=== PATIENT | female | born 1945 | race Caucasian/White ===

== ENCOUNTER 2017-11-09 08:04 | Outpatient (CLI) | payer OTHER, SELFPAY ==
[2017-11-09 08:48] LABS: HCT 37.7 % (36.0-46.0); HGB 12.5 g/dL (12.0-15.5); Mean Corp. HGB Concentration 33.2 g/dL (32.0-36.0); Mean Corpuscular Hemoglobin 29.8 pg (27.0-33.0); Mean Platelet Volume 10.1 fL (8.0-11.0); Platelet Count 189 x1000/uL (130-400); RBC 4.19 m/cumm (4.00-5.20); RBC Distribution Width 13.8 % (11.7-14.6); White Blood Cell Count 4.22 k/cumm (4.4-10.8)
[2017-11-09 09:23] LABS: ALT 28 U/L (12-78); AST 27 U/L (15-37); Albumin 3.8 g/dL (3.4-5.0); Alkaline Phosphatase 52 U/L (46-116); Anion Gap 7.4 mmol/L (3-11); BUN 21 mg/dL (7-18); Bilirubin, Total 0.3 mg/dL (0.2-1.0); CO2 27.6 mmol/L (21.0-32.0); Calcium 8.3 mg/dL (8.5-10.1); Chloride 107 mmol/L (98-107); Cholesterol 208 mg/dL (50-200); Glucose 81 mg/dL (70-100); HDL Cholesterol 78 mg/dL (40-60); LDL CHOLESTEROL 122 mg/dL (<100); Potassium 3.8 mmol/L (3.5-5.1); Sodium 142 mmol/L (136-145); Total Protein 6.4 g/dL (6.4-8.2); Triglyceride 48 mg/dL (30-150)
== END 2017-11-09 08:24 ==
PROVIDERS: PCP Family Medicine; Visit Provider Family Medicine
DX: Z00.00 Encounter for general adult medical examination without abnormal findings (principal); Z13.228 Encounter for screening for other metabolic disorders; Z13.6 Encounter for screening for cardiovascular disorders; Z13.0 Encounter for screening for diseases of the blood and blood-forming organs and certain disorders involving the immune mechanism
CPT/HCPCS: 36415; 80053; 80061; 83721; 85027

== ENCOUNTER 2018-02-09 01:09 | Outpatient (CLI) | payer OTHER, SELFPAY ==
--- NOTE | 2018-02-09 14:30 | DI.MAMMO_ITS ---
SYMPTOMS/DIAGNOSIS: 6-MO F/U ABNORMAL RIGHT MAMMO SIX-MONTH FOLLOWUP RIGHT MAMMOGRAM: Mammograms were interpreted according to the usual protocol including computer analysis with CAD system, tomosynthesis and C view imaging. Comparison is with the prior examinations. Breast density C. No suspicious masses or microcalcifications are seen. The skin and axillae are unremarkable. IMPRESSION: No evidence for malignancy. Yearly mammography is recommended. Category 1. MQSA ASSESSMENT OF FINDINGS: Negative. Category 1. Patient will receive a letter notifying them of these results. Bi-RADS category C. The breasts are heterogeneously dense, which may obscure small masses.
== END 2018-02-09 01:29 ==
PROVIDERS: PCP Family Medicine; Referring Provider Family Medicine; Visit Provider Family Medicine
DX: Z12.31 Encounter for screening mammogram for malignant neoplasm of breast (principal); R92.8 Other abnormal and inconclusive findings on diagnostic imaging of breast; N64.59 Other signs and symptoms in breast
CPT/HCPCS: 77061; 77065; G0279

== ENCOUNTER 2018-02-21 00:25 | Outpatient (CLI) | payer OTHER, SELFPAY ==
--- NOTE | 2018-02-21 16:12 | DI.DEXA_ITS ---
SYMPTOM/DIAGNOSIS: SCREENING FOR OSTEOPOROSIS IN POSTMENOPAUSAL WOMAN, Z78.0 DEXA SCAN: The YOAV image shows no evidence of compression fractures. The upper thoracic vertebral bodies are not included on the exam. Degenerative changes and scoliosis are seen in the lumbar spine. The bone mineral density measurements of the lumbar spine correspond to a total T score of 0.6, in the normal range. This is not significantly changed from 2004. The bone mineral density measurements of the left hip correspond to a total T score of -0.4 and a femoral neck T score of -1.3, consistent with osteopenia. The total T score has decreased 11.2% when compared with the previous exam. The bone mineral density measurements of the left forearm correspond to a total T score of -0.8, in the normal range. IMPRESSION: Normal bone mineral density of the lumbar spine and forearm. Osteopenia of the left hip.
== END 2018-02-21 00:45 ==
PROVIDERS: PCP Family Medicine; Visit Provider Family Medicine
DX: M85.88 Other specified disorders of bone density and structure, other site (principal); Z78.0 Asymptomatic menopausal state
CPT/HCPCS: 77080

== ENCOUNTER 2019-02-12 01:24 | Outpatient (CLI) | payer OTHER, SELFPAY ==
--- NOTE | 2019-02-12 09:27 | DI.MAMMO_ITS ---
EXAM: MG MAMMO SCREENING CLINICAL HISTORY: SCREENING, Z12.31. TECHNIQUE: Full field digital CC and MLO mammographic images were obtained with 3D tomosynthesis and utilizing computer aided detection (CAD). COMPARISON: 2009 through 2018 FINDINGS: Breast density: C Masses/Architectural Distortion: None seen. Microcalcifications: No suspicious pleomorphic-type calcifications are seen. Skin Thickening/Nipple Retraction: None. Axilla: Unremarkable. IMPRESSION: 1. BI-RADS category 1, negative. No significant interval change with no specific features of maligna ncy noted. 2. Unless there is more urgent need, screening mammography is recommended, as per [employer] guidelines. BI-RADS Cat 1 - Negative Breast Density - Category C - Heterogeneously dense A negative radiographic report should not delay biopsy if a dominant or clinically suspicious mass is present. Up to ten percent of cancers are not identified on mammography. A negative report may reinforce clinical impression. Adenosis and dense breasts may obscure an underlying neoplasm. False positive reports average 6 to 10%. Patient will receive a letter notifying them of these results.
== END 2019-02-12 01:44 ==
PROVIDERS: PCP Family Medicine; Visit Provider Family Medicine
DX: Z12.31 Encounter for screening mammogram for malignant neoplasm of breast (principal)
CPT/HCPCS: 77063; 77067

== ENCOUNTER 2020-02-14 01:00 | Outpatient (CLI) | payer OTHER, SELFPAY ==
--- NOTE | 2020-02-14 14:51 | DI.MAMMO_ITS ---
EXAM: MG MAMMO SCREENING CLINICAL HISTORY: SCREENING, Z12.31. TECHNIQUE: Bilateral full field digital CC and MLO mammographic images were obtained with 3D tomosyn thesis and utilizing computer aided detection (CAD). COMPARISON: Prior mammograms dating back to 2010, the most recent being degenerate 2019. Family his tory. Patient's mother diagnosed breast cancer at age 70. FINDINGS: Fibroglandular tissue pattern is moderately dense. There are no new obvious spiculated masses nor malignant appearing microcalcification groups. There is no significant architectural distortion nor skin thickening-retraction. IMPRESSION: No radiographic evidence of malignancy. BI-RADS Category 1 - Negative Breast Density - Category C - Heterogeneously dense Breast density Category C or D implies that the patient has dense breast tissue. Dense breast tissue can make it harder to find cancer on a mammogram. Dense breast tissue is also associated with an incr eased risk of breast cancer. This information about the result of the mammogram report was provided to the patient to raise their awareness. Use this report when you speak with the patient about their risks for breast cancer, which includes their family history. At that time, you may recommend additional screening tests (Ultrasoun d or MRI) as these tests may add significant information. A negative radiographic report should not delay biopsy if a dominant or clinically suspicious mass is present. Up to ten percent of cancers are not identified on mammography. A negative report may reinforce clinical impression. Adenosis and dense breasts may obscure an underlying neoplasm. False positive reports average 6 to 10%. Patient will receive a letter notifying them of these results.
== END 2020-02-14 01:20 ==
PROVIDERS: PCP Family Medicine; Visit Provider Family Medicine
DX: Z12.31 Encounter for screening mammogram for malignant neoplasm of breast (principal); Z80.3 Family history of malignant neoplasm of breast
CPT/HCPCS: 77063; 77067

== ENCOUNTER → 2020-06-16 09:06 | Outpatient (BNVA) | payer OTHER, SELFPAY | PROVIDERS: PCP Family Medicine; Referring Provider Family Medicine; Visit Provider Surgery | DX: K40.20 Bilateral inguinal hernia, without obstruction or gangrene, not specified as recurrent (principal) | CPT/HCPCS: 99202; 99203 ==

== ENCOUNTER 2020-07-14 03:59 | Outpatient (CLI) | payer OTHER, SELFPAY ==
[2020-07-14 12:34] LABS: Source Nasal/Nares
[2020-07-14 21:02] LABS: COVID-19 PCR Negative (Negative)
== END 2020-07-14 04:00 | disposition home or self-care (01) ==
LOC: LBO 03:59
PROVIDERS: PCP Family Medicine; Visit Provider Surgery
DX: Z20.822 Contact with and (suspected) exposure to COVID-19 (principal); Z01.818 Encounter for other preprocedural examination
CPT/HCPCS: 87635

== ENCOUNTER 2020-07-15 07:25 | Day surgery (SDC) | payer OTHER, SELFPAY ==
[2020-07-15] VITALS (9 sets, daily range): BP systolic 103–127; BP diastolic 63–79; PULSE 62–81; RESP 12–16; TEMP 36.1–36.5; O2SAT 96–100; BMI 22.7
--- NOTE | 2020-07-15 06:36 | ANES.PREOP_ITS ---
General Info Date of Service Date Performed: 07/15/20 Height: 5 ft 7 in Weight: 65.828 kg Body Mass Index (BMI): 22.7 Surgical Procedure: Operation Date: 07/15/20 09:55 Proposed Procedures Side Surgeon p Herniorrhaphy Inguinal Bilateral Mavis Steen, Meds Allergies and Home Medications Allergies Allergy/AdvReac Type Severity Reaction Status Date / Time cephalexin monohydrate Allergy Severe ITCHING Unverified 07/15/20 07:35 [From Keflex] prochlorperazine AdvReac Intermediate LOCKING Unverified 07/15/20 07:35 MUSCLES, CAN'T SIT STILL Home Medication Medication Instructions Recorded multivitamin [Multi Vitamin Daily] 1 ea PO DAILY 06/17/12 Bioadreno 1 cap PO DAILY 06/22/12 cholecalciferol (vitamin D3) 1 drp PO DAILY 10/03/12 zsjrkvef-mobu-mjklcx-hyalur ac 1 ea PO DAILY 09/06/13 magnesium amino acid chelate 100 mg PO DAILY 09/06/13 Apple Cider Vinegar 1 tab.trish PO DAILY 01/12/16 omega 7-tks-gvp-fish oil 1 cap PO DAILY 01/12/16 estradiol [Estring] 1 ea VG q 3 months #1 ea 01/12/17 calcium citrate 500 mg-vit D3 12.5 500 g PO DAILY 06/16/20 mcg (500 unit)/5 gram oral powder Current Visit Medications: Current Medications Generic Name Dose Route Start Last Admin Trade Name Freq PRN Reason Stop Dose Admin Acetaminophen 1,000 mg 07/15/20 06:00 Acetaminophen 500 Mg Tab PO 08/13/20 23:59 PREOP ANNIA Gabapentin 300 mg 07/15/20 06:00 Gabapentin 300 Mg Cap PO 08/13/20 23:59 PREOP ANNIA Ringer's Solution 1,000 mls @ 80 mls/hr 07/15/20 06:00 IV 08/13/20 23:59 INFUSION ANNIA IV Miscellaneous Supplies 1 each 07/15/20 06:00 Iv Access IV 08/13/20 23:59 DIRECTED ANNIA Sodium Chloride 0 ml 07/15/20 06:00 Normal Saline Flush 10 Ml Syr IV 08/13/20 23:59 PRN PRN Sodium Chloride 0 ml 07/15/20 06:00 Normal Saline 10 Ml Vial IJ 08/13/20 23:59 DIRECTED PRN Sterile Water 0 ml 07/15/20 06:00 Water,Injection,Sterile 10 Ml Vial IJ 08/13/20 23:59 DIRECTED PRN PFSH Active Problems Active Problems: Problem Status Onset Code Bilateral inguinal hernia without obstruction or gangrene K40.20 Medical History Medical History Inguinal hernia, right Surgical History Surgical History (Updated 07/15/20 @ 07:45 by Jonnathan Godwin) blepharaplasty (~10/2012) Hx of cataract removal with insertion of prosthetic lens KNEE SURGERY sugery for torn cartilage Tobacco Smoking/Tobacco Use Status: Never Alcohol Alcohol Intake: current Alcohol intake frequency: a few times a week Alcohol type: wine Substance Use Substance use: Never Substance use type: does not use Vital Signs and Lab Results Vital Signs Most Recent Vital Signs in EMR: Temp Pulse Resp BP Pulse Ox 36.5 C 81 16 124/76 97 07/15/20 07:38 07/15/20 07:38 07/15/20 07:38 07/15/20 07:38 07/15/20 07:38 Lab Results Blood Type / Crossmatch: No Data to Display Complete Blood Count: No Data to Display Complete Metabolic Panel: 2 No Data to Display Liver Function Panel: No Data to Display Coagulation Panel: No Data to Display Cardiac Panel: No Data to Display Arterial Blood Gas: No Data to Display Venous Blood Gas: No Data to Display Pancreas Panel: No Data to Display Thyroid Panel: No Data to Display Infectious Disease: Coronavirus (COVID-19)(PCR) Negative (Negative) 07/14/20 08:39 07/14/20 Coronavirus 2019 Source Nasal/nares 07/14/20 08:39 07/14/20 Blood Cultures: No Data to Display Toxicology Panel: No Data to Display Anesthesia Assessment and Plan Anesthesia History Personal History: No History of Anesthesia Complications Family History: No Family History of Anesthesia Complications Exercise Tolerance Exercise Tolerance: Metabolic Equivalents>4 Cardiac & Pulmonary Exam Cardiac Exam: Normal S1/S2 Heart Sounds Pulmonary Exam: Clear Bilateral Breath Sounds Airway Exam Known Difficult Airway: No Mallampati Class: 2 Mouth Opening: Normal (> 3cm) Thyromental Distance: Greater than 3 cm Neck Range of Motion: Full ROM Neck Circumference: Normal Teeth Condition: Normal Dentition ASA Classification ASA Score: ASA 2 Emergency Case?: No NPO Status NPO Status: NPO Clears >2 hours, Solids >8 hours Anesthesia Plan Resuscitation Status: Full Code Anesthesia Technique: General Anesthesia Airway Planned: LMA Pain Management: Surgeon and patient request nerve block Monitors Used: Standard Monitors Preoperative Comments:: Discussed risks, benefits, and alternatives of GA vs spinal with additional TAP blocks. Pt would like GA and TAP block.
[2020-07-15] MEDS: Lactated Ringers 1,000 ML 80 ML IV (08:09)
[2020-07-15] MEDS: Acetaminophen 500 MG TAB 1000 MG PO (08:09)
[2020-07-15] MEDS: Gabapentin 300 MG CAP PO (08:09)
[2020-07-15] MEDS: ceFAZolin 2 GM/50 ML BAG IVPB (10:28)
--- NOTE | 2020-07-15 11:12 | W.ANESNERVE ---
Nerve Block Single Injection Procedure Date and Time Date Performed: 07/15/20 Procedure Start: 10:42 Location Where Procedure Performed Procedure Location: Operating Room Procedure Stop: 10:53 Reason Performed: Postoperative Analgesia Requesting Provider: Mavis Steen Timeout Performed Timeout Performed: Yes Monitoring Used ECG, Blood Pressure, SpO2, ETCO2 and See EMR for corresponding vital signs Sterility Sterility: Hand Hygiene, Surgical Cap, Surgical Mask, Sterile Gloves, Eye Protection and Chlorhexidine Sedation Given During Procedure Sedation Given (Indicate Dose Given): No Sedation given Patient Mental Status Patient Mental Status: Performed under general anesthesia Nerve Block 1st Nerve Block: Laterality: Bilateral Block Type: TAP Bilateral Needle / Catheter Used: 100mm SonoPlex II Local Anesthetic Bolus (Indicate Dose Given): Injected in 3-5ml increments after negative blood aspiration, Half of Total block solution given into each side, Bupivacaine 0.375% Dose:: 40 mL and Exparel Dose:: 20 cc Additives (Indicate Dose Given): None Ultrasound: Sterile probe cover and gel used Ultrasound Image Saved?: Yes Nerve Stimulator: Not Used Paresthesia: None Procedure Tolerated: No Complications Procedure Outcome: Successful (block was completed. ) Performed By: Lola Bourgeois Supervised By: Abhishek Callahan
[2020-07-15] MEDS: Lidocaine 1% Multi-Dose 50 ML VIAL (11:40)
--- NOTE | 2020-07-15 12:28 | W.PM.OP ---
Date of service: 07/15/20 Time of Service: 12:28 Operative Note Operative Note DATE OF PROCEDURE: 07/15/20 PRE-OP DIAGNOSIS: b/l inguinal hernias POST-OP DIAGNOSIS: same PROCEDURE: open b/l inguinal hernia- indirect SURGEON: Mavis Benitez ASH CONVEYOR OPERATOR: Yenny Roberts ANESTHESIA TYPE: Local By Surgeon, General:No Airway and Primary Nerve Block Refer to Anesthesia Record ESTIMATED BLOOD LOSS: 5 PATHOLOGY: none sent COMPLICATIONS: None Patient was transported to: PACU Patient's condition: stable Implants: see RN notes Procedure Description: INDICATIONS: The pt is here today for surgery regarding symptomatic bilateral inguinal hernia that has failed outpatient conservative medical management and she is here today for repair. Informed consent was obtained, explaining risks and benefits of the procedure including but not limited to bleeding, infection, pneumonia, blood clots, chronic pain, chronic numbness, recurrence of hernia, reaction to Mesh necessitating removal, and other unforetold complications, and complications of anesthesia-which were addressed by the SPECIAL NEED[employer] BUS DRIVER. The patient is marked in preOp prior to the procedure DESCRIPTION OF PROCEDURE: The pt is then brought to the operative room suite. Anesthesia was administered per the Department of Anesthesia. Anesthesia did nerve blocks using Exparel. The patient was prepped and draped in the usual sterile fashion using ChloraPrep scrub solution. Pause for the cause was done. SHe did receive preop IV antibiotics. The right side is attended to first. Twenty mL of .25% Marcaine w/ epinephrine was used for local anesthetization. A #12 blade was used to make an incision over the external ring. Electrocautery used to provide hemostasis and dissect down to the the external Bleich fashion. The hernia is noted protruding through the inguinal ring. The external Bleich is opened approximately half an inch to facilitate visualization of the internal ring. The nerve is identified and obliterated using electrocautery. The hernia sac is dissected out. There is a large cord lipoma adhered to this. This is dissected off the sac, and then tied off with 0 Vicryl tie, and excised. Electro-cautery is used to provide hemostasis. The sac is inverted and returned to the abdominal cavity. A large mesh plug was slightly modified for fit, was then placed into the defect and oversewn, using 2-0 Vicryl. The patch was then placed on the floor and sewn in using 2-0 Vicryl sewn into the pubic tubercle ,and the shelving portions of the inguinal ligament. the wound was copiously irrigated. There was no bleeding noted. All structures are returned to there nomral anatomic position. The external oblique is than reapproximated in a running fashion with 2-0 vicryl, the incision. Deep tissue was approximated with 3-0 Vicryl and skin was approximated with 4-0 Monocryl in a running subcuticular fashion. Skin glue was applied. The left side is attended to in a similar fashion. Twenty mL of .25% Marcaine w/ epinephrine was used for local anesthetization. A #12 blade was used to make an incision over the external ring. Electrocautery used to provide hemostasis and dissect down to the the external Bleich fashion. The hernia is noted protruding through the inguinal ring. The external Bleich is opened approximately half an inch to facilitate visualization of the internal ring. The nerve is identified and obliterated using electrocautery. The hernia sac is dissected out. There is a small cord lipoma adhered to this. This is dissected off the sac, and then tied off with 0 Vicryl tie, and excised. Electro-cautery is used to provide hemostasis. The sac is inverted and returned to the abdominal cavity. A small mesh plug was was then placed into the defect and oversewn, using 2-0 Vicryl. The patch was then placed on the floor and sewn in using 2-0 Vicryl sewn into the pubic tubercle ,and the shelving portions of the inguinal ligament. the wound was copiously irrigated. There was no bleeding noted. All structures are returned to there nomral anatomic position. The external oblique is than reapproximated in a running fashion with 2-0 vicryl, the incision. Deep tissue was approximated with 3-0 Vicryl and skin was approximated with 4-0 Monocryl in a running subcuticular fashion. Skin glue was applied. The patient tolerated the procedure without complications to recovery in stable condition. MAVIS BENITEZ DO
--- NOTE | 2020-07-15 12:30 | W.PM.DSUDISC ---
Discharge Plan Disposition Patient Disposition: HOME Condition: Good Discharge Details Reason For Visit: b/l inguinal hernias Attending Provider: Mavis Steen Primary Care Provider: Selina Rizzo Home Meds and New Rx's Prescriptions: New ibuprofen 600 mg tablet 600 mg PO Q6H PRN (Reason: pain) Qty: 90 RF: 0 Continued calcium citrate-vitamin D3 500 mg-12.5 mcg /5 gram powder 500 g PO DAILY RF: 0 multivitamin [Daily Multi-Vitamin] 1 EACH tablet 1 ea PO DAILY RF: 0 bioadreno 1 cap PO DAILY RF: 0 cholecalciferol (vitamin D3) 400 UNIT/1 ML drops 1 drp PO DAILY RF: 0 pknjcycj-fnjn-okjoin-hyalur ac 1 EACH capsule 1 ea PO DAILY RF: 0 magnesium amino acid chelate 100 MG tablet 100 mg PO DAILY RF: 0 Apple Cider Vinegar 1 tab.trish PO DAILY RF: 0 omega 9-itg-jts-fish oil 1 EACH capsule 1 cap PO DAILY RF: 0 Estring 1 EACH ring 1 ea VG q 3 months Qty: 1 RF: 4 Discharge Instructions Additional Instructions: Dr. Steen HERNIA REPAIR ? POSTOPERATIVE INSTRUCTIONS Patients who have this type of surgery can usually be expected to return to work within two weeks and have minimal amounts of discomfort. ? ACTIVITY: The day of surgery should be spent resting. However, you can be up for short periods of time, I.E., going to the bathroom or kitchen. Avoid lifting or straining. On the day following surgery, you can be up and about as desired. ? LIFTING: Restrict your lifting to no more than five (5) pounds for the first week following surgery. For the second week after surgery, don?t lift more than ten pounds. We will decide when you are done with restrictions and when you can return to work, at your follow-up appointment. No sexual activity for two weeks. ? DIET: There are no dietary restrictions following surgery. However, you may want to start with small amounts of liquids to avoid nausea the day of surgery. ? INCISION CARE: You will notice purple skin glue closing the incision. Do not peel this off- it will wear off on its own. After 24 hours you may shower. The dressing may be replaced for comfort, but is not necessary. An ice bag may be applied to the incision for 72 hours following surgery. ? SIGNS OF INFECTION: It is not unusual to have some black and blue discoloration of the skin around the incision. It will slowly disappear. If you have any increased redness, drainage, fever (above 100 degrees), please contact your doctor for an examination. ? DISCOMFORT: You may expect to have some mild discomfort at the incision sight. If severe pain develops you should contact your doctor for further instructions. ? URINATION: Patients who have surgery occasionally have problems urinating. If you experience problems and are not able to urinate within 6 hours following your surgery, please call your doctor immediately or go to your nearest Emergency Room for evaluation. ? DRIVING: NO driving for three (3) days after surgery, or if you are still taking narcotic pain medication. ? MEDICATIONS: Alternate Tylenol 1000mg by mouth every 8 hours and Ibuprofen 600mg every 6 hours. Make sure you take ibuprofen with food and not on an empty stomach. Take the Tylenol and ibuprofen continuously for the first 72hrs- not just when you have pain. Use the tramadol for breakthrough pain. Use ICE! Twenty minutes on, and then off, continuously for the first 72hours. If you are taking narcotic pain medication, follow the instructions on the label and do not drive. Pain medications can make you very constipated. Make sure you are moving your bowels daily. If not, take Miralax, milk of magnesia or magnesium citrate. Anesthesia makes you very constipated. Take a dose of milk of magnesia the morning after surgery. ? REPORT: Unusual swelling, severe pain, unresolved nausea, signs of infection, or difficulty in urination to your surgeon. Follow up in clinic with Dr. Steen in 1-2 weeks. [phone] Stand Alone Forms: Anesthesia Discharge Inst., Anes.Nerve Block Instructions Activity:: see above Remove Dressings/Wound Care:: 24 hours Shower/Bathe:: 24 hours Diet:: see above Discharge Orders Discharge Orders: Discharge Order (Routine); Ordered 07/15/20 Ordered By: Mavis Steen Discharge Data Discharge Date/Time-TO BE ENTERED AT DEPARTURE: 07/15/20 15:25 Discharge Comment: To friend, Mariza, via wheelchair by Ashia WADE. DS: Diagnosis Discharge Diagnosis (1) Bilateral inguinal hernia without obstruction or gangrene: Status: Acute
--- NOTE | 2020-07-15 13:04 | W.ANESPOSTOP ---
Postoperative Evaluation Date, Time and Location Date Performed: 07/15/20 Time Performed: 13:04 Patient Location: PACU Vital Signs Most Recent Imported Vital Signs: Most Recent Vital Signs Temp Pulse Resp BP Pulse Ox 36.5 C 77 14 127/76 96 07/15/20 12:55 07/15/20 12:55 07/15/20 12:55 07/15/20 12:55 07/15/20 12:55 Pain Score Most Recent Pain Score: Most Recent Pain Score Pain Level 0 07/15/20 12:55 Assessment Mental Status: Awake (Alert & Oriented to Patient Baseline) Airway and Respiratory Function: Patent airway with normal (patient baseline) respiratory exam Cardiovascular Function: Hemodynamically Stable Hydration Status: Adequately Hydrated Nausea & Vomiting: No Nausea or Vomiting Pain: Pt. Denies Any Pain Peripheral Nerve Block: Regional nerve block not resolved at time of post operative discharge
== END 2020-07-15 15:25 | disposition home or self-care (01) ==
PROVIDERS: PCP Family Medicine; Visit Provider Surgery
PROC: (CPT 49505; principal; 2020-07-15 09:45)
DX: K40.20 Bilateral inguinal hernia, without obstruction or gangrene, not specified as recurrent (principal)
CPT/HCPCS: 49505; 76942; C1781; J0690; J1100; J1885; J2001; J2405

== ENCOUNTER → 2020-07-31 10:56 | Outpatient (BNVA) | payer OTHER, SELFPAY | PROVIDERS: PCP Family Medicine; Referring Provider Family Medicine; Visit Provider Surgery | DX: Z48.815 Encounter for surgical aftercare following surgery on the digestive system (principal) ==

== ENCOUNTER 2021-01-05 00:45 | Outpatient (CLI) | payer OTHER, SELFPAY ==
--- NOTE | 2021-01-05 12:55 | DI.RAD_ITS ---
Exam(s) XR KNEE LT 3V AP,LAT,THOMAS EXAM: XR KNEE LT 3V AP,LAT,THOMAS CLINICAL HISTORY: LT KNEE PAIN, M25.562. TECHNIQUE: 2D digital imaging was performed. COMPARISON: No exams were available for comparison FINDINGS: There is no evidence of acute fracture. A small amount of increased joint fluid is noted. There is chondrocalcinosis in both the mediolateral compartments evident. Fabella is noted posteriorly. Only mild joint space narrowing evident medial compartment. No osteophytes. No osseous lesions. IMPRESSION: Chondrocalcinosis. DATA REPOSITORY: RADIATION DOSE DELIVERED:
== END 2021-01-05 01:05 ==
PROVIDERS: PCP Family Medicine; Visit Provider Family Medicine
DX: M25.562 Pain in left knee (principal); M11.262 Other chondrocalcinosis, left knee
CPT/HCPCS: 73562

== ENCOUNTER 2021-02-16 01:45 | Outpatient (CLI) | payer MEDICARE, SELFPAY ==
--- NOTE | 2021-02-16 11:00 | DI.MAMMO_ITS ---
Exam(s) MAMMO SCREENING EXAM: MAMMO SCREENING CLINICAL HISTORY: SCREENING, Z12.31 TECHNIQUE: Mammograms were interpreted according to the usual protocol including computer analysis w [employer] CAD system, tomosynthesis and C-view imaging. COMPARISON: 2011 through 2020 FINDINGS: The breasts are composed of heterogeneously dense fibroglandular densities, Breast Density category C . No suspicious masses or suspicious microcalcifications are seen. No skin thickening or abnormal axillary lymph nodes are seen. There has been no significant change from prior exams. IMPRESSION: BI-RADS Category 1, Negative mammogram. Yearly screening mammography is recommended. Breast Density Category C, heterogeneously Dense. The mammogram demonstrates the patient's breast tissue is dense. Dense breast tissue is very common a nd is not abnormal but dense breast tissue can make it harder to find cancer on a mammogram. Also, de nse breast tissue may increase breast cancer risk. This information about the result of the mammogram report was provided to the patient to raise their awareness. Use this report when you speak with the patient about their risks for breast cancer, which includes their family history. At that time, you may recommend additional screening tests (Ultrasound or MRI) as they might be useful based on their r isk. A negative radiographic report should not delay biopsy if a dominant or clinically suspicious mass is present. Up to ten percent of cancers are not identified on mammography. A negative report may reinforce clinical impression. Adenosis and dense breasts may obscure an underlying neoplasm. False positive reports average 6 to 10%.
== END 2021-02-16 02:05 ==
PROVIDERS: PCP Family Medicine; Visit Provider Family Medicine
DX: Z12.31 Encounter for screening mammogram for malignant neoplasm of breast (principal); R92.8 Other abnormal and inconclusive findings on diagnostic imaging of breast
CPT/HCPCS: 77063; 77067

== ENCOUNTER → 2021-03-04 10:25 | Outpatient (BNVA) | payer MEDICARE, SELFPAY | PROVIDERS: PCP Family Medicine; Referring Provider Chiropractor Orthopedic; Visit Provider Student in an Organized Health Care Education/Training Program | DX: M11.262 Other chondrocalcinosis, left knee (principal); M17.12 Unilateral primary osteoarthritis, left knee | CPT/HCPCS: 99213 ==

== ENCOUNTER 2022-03-01 01:39 | Outpatient (CLI) | payer MEDICARE, SELFPAY ==
--- NOTE | 2022-03-01 | DI.MAMMO_ITS ---
Exam(s) MAMMO SCREENING EXAM: MAMMO SCREENING CLINICAL HISTORY: SCREENING MAMMO FOR BREAST CANCER Z12.31 TECHNIQUE: Mammograms were interpreted according to the usual protocol including computer analysis w [employer] CAD system, tomosynthesis and C-view imaging. COMPARISON: 2012 through 2021 FINDINGS: The breasts are composed of scattered fibroglandular densities, Breast Density category B. No suspicious masses or suspicious microcalcifications are seen. No skin thickening or abnormal axillary lymph nodes are seen. There has been no significant change from prior exams. IMPRESSION: BI-RADS Category 1, Negative mammogram Yearly screening mammography is recommended. Breast Density - Category B, scattered fibroglandular densities. A negative radiographic report should not delay biopsy if a dominant or clinically suspicious mass is present. Up to ten percent of cancers are not identified on mammography. A negative report may reinforce clinical impression. Adenosis and dense breasts may obscure an underlying neoplasm. False positive reports average 6 to 10%. Patient will receive a letter notifying them of these results.
== END 2022-03-01 01:59 ==
LOC: DI 01:39
PROVIDERS: PCP Family Medicine; Visit Provider Family Medicine
DX: Z12.31 Encounter for screening mammogram for malignant neoplasm of breast (principal); R92.8 Other abnormal and inconclusive findings on diagnostic imaging of breast
CPT/HCPCS: 77063; 77067

== ENCOUNTER 2023-05-03 22:12 | Outpatient (REF) | payer MEDICARE, SELFPAY ==
[2023-05-03 16:01] LABS: ALT 33 U/L (14-59); AST 24 U/L (15-37); Albumin 3.7 g/dL (3.4-5.0); Alkaline Phosphatase 48 U/L (46-116); Anion Gap 6.7 mmol/L (3-11); BUN 24 mg/dL (7-18); Bilirubin, Total 0.3 mg/dL (0.2-1.0); CO2 31.3 mmol/L (21.0-32.0); CREATININE 0.9 mg/dL (0.55-1.02); Calcium 8.8 mg/dL (8.5-10.1); Calculated LDL 127 mg/dL (<100); Chloride 103 mmol/L (98-107); Cholesterol 197 mg/dL (<200); Estimated GFR 66.67 (mL/min/1.73m2); Glucose 79 mg/dL (74-106); HDL Cholesterol 56 mg/dL (40-60); Potassium 4.3 mmol/L (3.5-5.1); Sodium 141 mmol/L (136-145); Total Protein 6.5 g/dL (6.4-8.2); Triglyceride 70 mg/dL (<150)
[2023-05-03 17:21] LABS: Vitamin D 25 Total 123.7 ng/mL (30-100)
== END 2023-05-03 22:13 | disposition home or self-care (01) ==
LOC: NCHCN 22:12
PROVIDERS: PCP Family Medicine; Referring Provider Family Medicine; Visit Provider Family Medicine
DX: Z00.00 Encounter for general adult medical examination without abnormal findings (principal)
CPT/HCPCS: 80053; 80061; 82306

== ENCOUNTER 2023-05-24 13:48 | Outpatient (REF) | payer MEDICARE, SELFPAY ==
[2023-05-24 15:24] LABS: Vitamin D 25 Total 130.1 ng/mL (30-100)
== END 2023-05-24 13:49 | disposition home or self-care (01) ==
LOC: NCHCN 13:48
PROVIDERS: PCP Family Medicine; Visit Provider Family Medicine
DX: E55.9 Vitamin D deficiency, unspecified (principal)
CPT/HCPCS: 82306

== ENCOUNTER 2023-09-13 16:55 | Outpatient (REF) | payer MEDICARE, SELFPAY ==
[2023-09-13 15:52] LABS: Vitamin D 25 Total 96.4 ng/mL (30-100)
== END 2023-09-13 16:56 | disposition home or self-care (01) ==
LOC: NCHCN 16:55
PROVIDERS: PCP Family Medicine; Visit Provider Family Medicine
DX: E55.9 Vitamin D deficiency, unspecified (principal)
CPT/HCPCS: 82306

== ENCOUNTER 2023-10-31 15:22 | Outpatient (CLI) | payer MEDICARE, SELFPAY ==
[2023-10-31 18:23] LABS: Vitamin D 25 Total 87.4 ng/mL (30-100)
== END 2023-10-31 15:23 | disposition home or self-care (01) ==
LOC: LBO 15:24
PROVIDERS: PCP Family Medicine; Visit Provider Family Medicine
DX: E55.9 Vitamin D deficiency, unspecified (principal)
CPT/HCPCS: 36415; 82306